=== PATIENT | female | born 1985 | race Caucasian/White ===

== ENCOUNTER 2024-05-19 15:11 | Emergency (ER) | payer MEDICAID ==
[~2024-05-19] VITALS: Ht 160 cm; Wt 109.0 kg
[2024-05-19 15:14] VITALS: PULSE 105; O2SAT 98
[2024-05-19 15:21] VITALS: BP 175/89; RESP 18; TEMP 98.2; O2SAT 95
[2024-05-19 16:36] LABS: HEMATOCRIT 37.3 % (36.0-48.0); HEMOGLOBIN 11.8 g/dL (12.0-16.0); MEAN CORPUSCULAR HEMOGLOBIN 26.3 pg (28.0-32.0); MEAN CORPUSCULAR HGB CONC 31.6 g/dL (31.0-37.0); MEAN CORPUSCULAR VOLUME 83.2 fL (81.0-99.0); PLATELET 414 x1000/uL (130-400); RED BLOOD CELL COUNT 4.49 mill/uL (4.2-5.4); RED CELL DISTRIBUTION WIDTH 15.4 % (11.6-14.6); WHITE BLOOD COUNT 9.2 x1000/uL (4.5-11.0)
[2024-05-19 16:43] LABS: CHLORIDE 103 mEq/L (98-107); POTASSIUM 3.8 mEq/L (3.5-5.1); SODIUM 139 mEq/L (136-145)
[2024-05-19 16:44] LABS: CALCIUM 9.8 mg/dL (8.7-10.4); CARBON DIOXIDE 30 mEq/L (21-32)
[2024-05-19 16:49] LABS: GLUCOSE 138 mg/dL (70-105); UREA NITROGEN BLOOD 10 mg/dL (9-23)
[2024-05-19 16:51] LABS: ALANINE AMINOTRANSFERASE 9 IU/L (10-49); ALBUMIN 4.4 g/dL (3.2-4.8); ASPARTATE AMINOTRANSFERASE 10 IU/L (<34); BILIRUBIN TOTAL 0.3 mg/dL (0.1-1.0)
[2024-05-19 16:52] LABS: BILIRUBIN DIRECT < 0.1 mg/dL (<=3.0); TROPONIN I HIGH SENSITIVITY < 4 ng/L (3.0-34)
== END 2024-05-19 17:38 | disposition home or self-care (01) ==
LOC: ER 15:11
DX: R07.9 Chest pain, unspecified (principal); I10 Essential (primary) hypertension
CPT/HCPCS: 36415; 71045; 80048; 80076; 84484; 85027; 85379; 93005; 99285

== ENCOUNTER 2024-06-19 11:39 | Emergency (ER) | payer MEDICAID ==
[~2024-06-19] VITALS: Ht 149.9 cm; Wt 118.8 kg
[2024-06-19 11:44] VITALS: O2SAT 99
[2024-06-19 11:46] VITALS: BP 153/95; PULSE 78; RESP 18; TEMP 98.3; O2SAT 98
== END 2024-06-19 20:57 | disposition home or self-care (01) ==
LOC: ER 11:39
DX: R51.9 Headache, unspecified (principal); M54.2 Cervicalgia; E11.9 Type 2 diabetes mellitus without complications; I10 Essential (primary) hypertension; Z90.49 Acquired absence of other specified parts of digestive tract
CPT/HCPCS: 99281

== ENCOUNTER 2024-12-20 01:22 | Emergency (ER) | payer MEDICAID ==
[~2024-12-20] VITALS: Ht 160 cm; Wt 109.0 kg
[2024-12-20 01:37] VITALS: O2SAT 100
[2024-12-20 01:46] VITALS: BP 146/77; PULSE 84; RESP 18; TEMP 36.8; O2SAT 97
== END 2024-12-20 03:53 | disposition left against medical advice (07) ==
LOC: ER 01:22
DX: R07.9 Chest pain, unspecified (principal); Z53.21 Procedure and treatment not carried out due to patient leaving prior to being seen by health care provider
CPT/HCPCS: 71045; 93005

== ENCOUNTER 2025-04-10 13:25 | Emergency (ER) | payer MEDICAID ==
[~2025-04-10] VITALS: Ht 162.6 cm; Wt 88.0 kg
[2025-04-10 13:41] VITALS: O2SAT 100
[2025-04-10] MEDS ORDERED: ACET-2708 MT (16:39)
[2025-04-10 16:59] VITALS: BP 163/83; PULSE 65; RESP 16; TEMP 37.1; O2SAT 100
== END 2025-04-10 17:01 | disposition home or self-care (01) ==
LOC: ER 13:25
DX: M25.572 Pain in left ankle and joints of left foot (principal); E11.9 Type 2 diabetes mellitus without complications; I10 Essential (primary) hypertension
CPT/HCPCS: 73610; 99283